=== PATIENT | female | born 1995 | race Caucasian/White ===

== ENCOUNTER 2019-01-26 22:28 | Emergency (ER) | payer SELFPAY ==
[~2019-01-26] VITALS: Ht 167.6 cm; Wt 55.7 kg
--- NOTE | 2019-01-26 23:25 | PHYS DOC ---
Adult General Chief Complaint Chief Complaint: ABDOMINAL PAIN HPI HPI 23-year-old female presents with abdominal pain. She describes the pain as diffuse and moving around her abdomen. She has a constant cramping feeling with occasional spikes of sharp pain. These are mostly along her bilateral flanks. The pain does radiate through her back. Patient was diagnosed previously with kidney stones that were in the kidneys. She has never passed stone as far she knows. She has had some nausea but no vomiting. Patient thought she was constipated so she took stool softeners and suppositories yesterday. She had 2 bowel movements today. She continues to have pain. Patient admits to drug use, b ut is trying to stop. Her last menstrual cycle was 2 weeks ago. She is sexually active. She denies fever or chills. Review of Systems Review of Systems Constitutional: Denies fever or chills [] Eyes: Denies change in visual acuity, redness, or eye pain [] HENT: Denies nasal congestion or sore throat [] Respiratory: Denies cough or shortness of breath [] Cardiovascular: No additional information not addressed in HPI [] GI: Diffuse abdominal pain, nausea, constipation. Denies vomiting, bloody stools or diarrhea [] : Denies dysuria or hematuria [] Musculoskeletal: Denies back pain or joint pain [] Integument: Denies rash or skin lesions [] Neurologic: Denies headache, focal weakness or sensory changes [] Endocrine: Denies polyuria or polydipsia [] All other systems were reviewed and found to be within normal limits, except as documented in this note. Current Medications Current Medications Current Medications Medications (Trade) Dose Ordered Sig/Lalit Start Time Stop Time Status Last Admin Dose Admin Sodium Chloride 1,000 ml @ 1,000 mls/hr 1X ONCE 01/26/19 23:30 01/27/19 00:29 UNV Allergies Allergies Allergies Coded Allergies Type Severity Reaction Last Updated Verified No Known Drug Allergies 01/26/19 No Physical Exam Physical Exam Constitutional: Well developed, well nourished, no acute distress, non-toxic appearance. [] HENT: Normocephalic, atraumatic, bilateral external ears normal, oropharynx moist, no oral exudates, nose normal. [] Eyes: PERRLA, EOMI, conjunctiva normal, no discharge. [] Neck: Normal range of motion, no tenderness, supple, no stridor. [] Cardiovascular:Heart rate regular rhythm, no murmur [] Lungs & Thorax: Bilateral breath sounds clear to auscultation [] Abdomen: Bowel sounds normal, soft, diffuse tenderness, no masses, no pulsatile masses. [] Skin: Warm, dry, no erythema, no rash. [] Back: No tenderness, mild bilateral CVA tenderness. [] Extremities: No tenderness, no cyanosis, no clubbing, ROM intact, no edema. [] Neurologic: Alert and oriented X 3, normal motor function, normal sensory function, no focal deficits noted. [] Psychologic: Affect normal, judgement normal, mood normal. [] EKG EKG [] Radiology/Procedures Radiology/Procedures [] Impressions: EXAM: CT ABDOMEN/PELVIS WITH CONTRAST. HISTORY: Abdominal pain. TECHNIQUE: Computed tomography of the abdomen and pelvis was performed after the intravenous administration of iodinated contrast. COMPARISON: None. FINDINGS: Lung windows through the visualized portions of the bases reveal mild atelectasis. There is a small hiatal hernia. Bone windows reveal no suspicious lesions. There is a staghorn calculus within the right renal upper pole. It measures 3.3 x 2.8 cm. The surrounding calyces are dilated. The overlying cortex is at least mildly thinned. There is a 2 mm calculus in the left renal upper pole. A tiny calculus is noted in the left lower pole. There is mild urothelial thickening in the right ureter. There are no ureteral calculi. The liver, gallbladder, pancreas, adrenal glands, and spleen are unremarkable. There are no pathologically enlarged lymph nodes. Note is made of a retroaortic left renal vein. The uterus is septate. Stool throughout the colon is consistent with constipation. The appendix is not inflamed. There is no small bowel obstruction. IMPRESSION: 1. Staghorn calculus in the right renal upper pole with dilatation of the surrounding calyces an at least mild cortical thickening. There is mild urothelial thickening. Correlate to exclude developing xanthogranulomatous pyelonephritis. 2. Small left renal calculi measure up to 2 mm. 3. Findings consistent with constipation. 4. Septate uterus. This may be of concern with later fertility. 5. Small hiatal hernia. *One or more of the following individualized dose reduction techniques were utilized for this examination: 1. Automated exposure control. 2. Adjustment of the mA and/or kV according to patient size. 3. Use of iterative reconstruction technique. Electronically signed by: Jovi Sanders MD (01/27/2019 2:29 AM) [facility] Course & Med Decision Making Course & Med Decision Making Pertinent Labs and Imaging studies reviewed. (See chart for details) The patient's CT does show significant stool burden. I have advised the patient to take magnesium citrate for bowel cleanout. The official CT report also show staghorn calculus of the kidney and concern for pyelonephritis. Her labs are unremarkable. Her urinalysis significant for urinary tract infection. I will treat her with 1 g of Rocephin in the ED followed by 5 days of Levofloxacin. The patient's urine drug screen is positive she stated for opiates, methampheta mine, and marijuana. The patient is stable for discharge at this time. [] Dragon Disclaimer Dragon Disclaimer This electronic medical record was generated, in whole or in part, using a voice recognition dictation system. Departure Departure: Impression: Primary Impression: Constipation by delayed colonic transit Additional Impressions: UTI (urinary tract infection) Drug abuse Disposition: HOME, SELF-CARE Condition: STABLE Referrals: PCP,NO (PCP) Patient Instructions: Constipation, Adult, [id number], Urinary Tract Infection, [id number] Scripts Levofloxacin (LEVOFLOXACIN) 750 Mg Tablet 1 TAB PO DAILY for pyelonephritis, #5 TAB Prov: MULU HERNANDEZ DO 01/27/19 Problem Qualifiers Additional Impressions: UTI (urinary tract infection) Urinary tract infection type: acute cystitis Hematuria presence: with hematuria Qualified Codes: N30.01 - Acute cystitis with hematuria MULU HERNANDEZ DO Jan 26, 2019 23:25
[2019-01-26] MEDS ORDERED: IV NORMAL SALINE 1,000ML 1,000 ML IV ONE (23:30)
[2019-01-27 00:27] LABS: BASO % 1 % (0-3); EOS # 0.1 x10^3/uL (0.0-0.7); EOS % 1 % (0-3); HEMATOCRIT 37.8 % (36.0-47.0); HEMOGLOBIN 12.5 g/dL (12.0-15.5); LYMPH # 1.6 x10^3/uL (1.0-4.8); LYMPH % 22 % (24-48); MEAN CORPUSCULAR HEMOGLOBIN 29 pg (25-35); MEAN CORPUSCULAR HGB CONC 33 g/dL (31-37); MEAN CORPUSCULAR VOLUME 87 fL (79-100); MONO # 0.5 x10^3/uL (0.0-1.1); MONO % 7 % (0-9); NEUT # 4.8 x10^3uL (1.8-7.7); NEUT % 69 % (31-73); PLATELET COUNT 294 x10^3/uL (140-400); RED BLOOD COUNT 4.36 x10^6/uL (3.50-5.40); RED CELL DISTRIBUTION WIDTH 17.3 % (11.5-14.5)
[2019-01-27] MEDS ORDERED: CONTRAST GIVEN MC PRN (00:30)
[2019-01-27 00:33] LABS: ALBUMIN 3.7 g/dL (3.4-5.0); CALCIUM 9.2 mg/dL (8.5-10.1); CREATININE 0.9 mg/dL (0.6-1.0); GFR 77.6; POTASSIUM 3.8 mmol/L (3.5-5.1); TOTAL BILIRUBIN 0.4 mg/dL (0.2-1.0); TOTAL PROTEIN 7.5 g/dL (6.4-8.2)
[2019-01-27] MEDS ORDERED: IOHEXOL 300 MG/ML 75 ML VIAL. IV ONE (01:00)
[2019-01-27 01:48] LABS: BACTERIA,URINE MANY /HPF (0-FEW); BILIRUBIN,URINE NEG (NEG); CLARITY,URINE CLOUDY; COLOR,URINE YELLOW; GLUCOSE,URINE NEG (NEG); NITRITE,URINE POS (NEG); SQUAMOUS EPITHELIAL CELL,UR OCC /LPF; UROBILINOGEN,URINE 0.2 mg/dL (0.2 mg/dL); WBC,URINE >40 /HPF (0-4)
[2019-01-27 01:52] LABS: BARBITURATES NEG (NEG); BENZODIAZEPINES NEG (NEG); CANNABINOIDS POS (NEG); COCAINE NEG (NEG); METHADONE NEG (NEG); OPIATES POS (NEG); PHENCYCLIDINE NEG (NEG)
[2019-01-27 01:53] LABS: AMPHETAMINE/METHAMPHETAMINE POS (NEG)
[2019-01-27] MEDS ORDERED: NITR100C62 PO (02:22)
--- NOTE | 2019-01-27 02:31 | RAD ---
EXAM: CT ABDOMEN/PELVIS WITH CONTRAST. HISTORY: Abdominal pain. TECHNIQUE: Computed tomography of the abdomen and pelvis was performed after the intravenous administration of iodinated contrast. COMPARISON: None. FINDINGS: Lung windows through the visualized portions of the bases reveal mild atelectasis. There is a small hiatal hernia. Bone windows reveal no suspicious lesions. There is a staghorn calculus within the right renal upper pole. It measures 3.3 x 2.8 cm. The surrounding calyces are dilated. The overlying cortex is at least mildly thinned. There is a 2 mm calculus in the left renal upper pole. A tiny calculus is noted in the left lower pole. There is mild urothelial thickening in the right ureter. There are no ureteral calculi. The liver, gallbladder, pancreas, adrenal glands, and spleen are unremarkable. There are no pathologically enlarged lymph nodes. Note is made of a retroaortic left renal vein. The uterus is septate. Stool throughout the colon is consistent with constipation. The appendix is not inflamed. There is no small bowel obstruction. IMPRESSION: 1. Staghorn calculus in the right renal upper pole with dilatation of the surrounding calyces an at least mild cortical thickening. There is mild urothelial thickening. Correlate to exclude developing xanthogranulomatous pyelonephritis. 2. Small left renal calculi measure up to 2 mm. 3. Findings consistent with constipation. 4. Septate uterus. This may be of concern with later fertility. 5. Small hiatal hernia. *One or more of the following individualized dose reduction techniques were utilized for this examination: 1. Automated exposure control. 2. Adjustment of the mA and/or kV according to patient size. 3. Use of iterative reconstruction technique. Electronically signed by: Jovi Sanders MD (01/27/2019 2:29 AM) [facility]
[2019-01-27] MEDS ORDERED: LEVO750T5 PO (02:42)
[2019-01-27] MEDS ORDERED: IV NORMAL SALINE 50ML 50 ML ONE (02:54)
[2019-01-27] MEDS ORDERED: cefTRIAXone SODIUM 1 GM VIAL ONE (02:55)
[2019-01-27] MEDS ORDERED: levoFLOXacin 500 MG TABLET PO ONE (03:00)
[2019-01-27] MEDS ORDERED: MAGNESIUM CITRATE 296 ML SOLUTION. PO ONE (03:00)
[2019-01-27 03:12] VITALS: BP 108/60
[2019-01-27] MEDS ORDERED: HYDROcodone/APAP 5/325MG 1 TAB TABLET PO ONE (03:30)
== END 2019-01-27 03:25 | disposition home or self-care (01) ==
LOC: ER 22:28
DX: N30.01 Acute cystitis with hematuria (principal); K59.01 Slow transit constipation; F12.10 Cannabis abuse, uncomplicated; F15.10 Other stimulant abuse, uncomplicated; F14.10 Cocaine abuse, uncomplicated
CPT/HCPCS: 36415; 74177; 80053; 80307; 81001; 81025; 85025; 87086; 96374; 99285; J0696; Q9967; 87186; J7030